=== PATIENT | female | born 1970 | race Two or more races ===

== ENCOUNTER 2017-08-27 20:05 | Emergency (ER) | payer OTHER ==
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
[2017-08-27 23:10] VITALS: BP 103/74; PULSE 66; RESP 18; TEMP 98.4; O2SAT 97
== END 2017-08-27 23:09 | disposition home or self-care (01) ==
PROC: 2W3CX2Z Immobilization of Right Lower Arm using Cast (ICD-10-PCS; principal; 2017-08-27)
DX: S52.501A Unspecified fracture of the lower end of right radius, initial encounter for closed fracture (principal); Z91.040 Latex allergy status; W23.0XXA Caught, crushed, jammed, or pinched between moving objects, initial encounter; Y92.009 Unspecified place in unspecified non-institutional (private) residence as the place of occurrence of the external cause; Y93.01 Activity, walking, marching and hiking